=== PATIENT | female | born 1990 | race Two or more races ===

== ENCOUNTER 2023-09-12 11:47 | Emergency (ER) | payer OTHER ==
[~2023-09-12] VITALS: Ht 157.5 cm; Wt 61.2 kg
[2023-09-12] MEDS ORDERED: ZOLOFT50 MG (12:14)
[2023-09-12] MEDS ORDERED: GUAIFENESIN 200 MG/10 ML BLIST.PACK PO STA (12:28)
[2023-09-12] MEDS ORDERED: KETOROLAC TROMETHAMINE 30 MG VIAL IM STA (12:28)
[2023-09-12] MEDS ORDERED: CEFTRIAXONE SODIUM 1,000 MG VIAL IM STA (12:29)
== END 2023-09-12 13:20 | disposition home or self-care (01) ==
LOC: ER 11:48
DX: J06.9 Acute upper respiratory infection, unspecified (principal)